=== PATIENT | male | born 1940 | race Caucasian/White ===

== ENCOUNTER 2016-11-05 09:05 | Emergency (ER) | payer OTHER ==
[~2016-11-05] VITALS: Ht 188 cm; Wt 110.0 kg
[~2016-11-05 09:05] MED LIST: ASPI81TA28 PO; ATEN-173 PO; ATOR-24 PO; FURO-85 PO; GABA-112 PO; HYDR12.55 PO; OMEG10007 PO
[2016-11-05 09:15] VITALS: O2SAT 96; Ht 188 cm; Wt 110.0 kg
[2016-11-05] MEDS ORDERED: GABA-113 PO (09:28)
[2016-11-05] MEDS ORDERED: CETI10TA84 PO (09:28)
[2016-11-05] MEDS ORDERED: MELO15TA10 PO (09:29)
--- NOTE | 2016-11-05 10:03 | EMERGENCY ROOM VISIT NOTE ---
History Report prepared by Shayne: Denice Pérez Under the Supervision of: Dr. Abdoul Moon M.D. First contact with patient: 09:36 Chief Complaint: SYNCOPE (NEAR SYNCOPE) Stated Complaint: SYNCOPE Nursing Triage Summary: Pt presents to room B12B via ALS. pt reports he has been constipated since wednesday, last bm was wednesday and he started to take "pain pills" as ordered by dr edwards for back pain. Pt reports he had three suppositoris today and while on the toliet trying to have a bm "i thought i was going to pass out." pt denies having any loc. pt alert and oriented x 4 upon arrival to ed. pt reports he has been having lower back pain and that is why he was started on unknown pain medication. pt displays trace pitting edema to left lower extremity and +1 pitting edema to right lower extremity. History of Present Illness The patient is a 76 year old male who presents to the Emergency Room with complaints of a sudden near syncopal episode that occurred this morning prior to arrival. He currently rates his discomfort as a 4/10 in severity. The patient states that since Wednesday he has been constipated. He states that he is currently on Tramadol for his chronic back pain. The patient denies typically going this long without moving his bowels. The patient reports right hand weakness for the past month. The patient's reports that the patient has a history of lung cancer five years ago, noting that he had one chemotherapy treatment. Source of History: patient Onset: prior to arrival Position: other (global) Symptom Intensity: 4/10 Quality: other (near syncopal episode) Timing: other (sudden) Associated Symptoms: + back pain, + weakness (right arm) Note: Associated symptoms: constipation Review of Systems See HPI for pertinent positives & negatives. A total of 10 systems reviewed and were otherwise negative. Past Medical & Surgical Medical Problems: (1) Esophageal perforation (2) Foreign body in trachea (3) Foreign body sensation in throat (4) Heart disease (5) HTN (hypertension) (6) Lung cancer Surgical Problems: (1) S/P cholecystectomy Family History Stroke Social History Smoking Status: Never Smoker Alcohol Use: occasionally Marital Status: Housing Status: lives with significant other Occupation Status: retired Current/Historical Medications Scheduled Aspirin (Aspirin Ec), 81 MG PO DAILY Atenolol (Tenormin), 25 MG PO QPM Atorvastatin (Lipitor), 40 MG PO DAILY Cetirizine (Zyrtec), 10 MG PO DAILY Docusate Sodium (Colace), 100 MG PO BID Fish Oil (Keeling-3), 1 CAP PO DAILY Gabapentin (Neurontin), 300 MG PO TID Hydrochlorothiazide (Hydrochlorothiazide), 12.5 MG PO Q2D Scheduled PRN Meloxicam (Mobic), 15 MG PO DIRECTED PRN for Pain Allergies Coded Allergies: Clopidogrel (Verified Allergy, Intermediate, ITCHY, FACE SWELLED AND RED, TO ER TO BE TREATED, 11/05/16) Physical Exam Vital Signs Date Time Temp Pulse Resp B/P Pulse Ox O2 Delivery O2 Flow Rate FiO2 11/05/16 13:08 36.9 71 18 119/70 96 11/05/16 11:12 71 18 160/79 96 11/05/16 10:26 68 18 135/63 97 Room Air 11/05/16 09:38 70 18 145/79 97 Room Air 11/05/16 09:16 65 11/05/16 09:15 96 Room Air 11/05/16 09:15 36.9 66 18 171/70 96 Room Air Physical Exam GENERAL: Patient awake, alert, oriented x 3. Patient follows commands. Patient does not appear toxic. Patient is adequately hydrated and well- nourished. SKIN: No erythema, pallor, cyanosis or rash HEENT: Normal head, pupils equal, reactive to light and accommodation. Ears normal. Oral cavity and posterior pharynx appear normal. Neck: Without adenopathy, no neck vein distention. LUNGS: Clear to auscultation. No wheezes, no rales, no rhonchi. HEART: No murmurs. No gallops. No rubs ABDOMEN: No masses, no rebound, no hepatomegaly or splenomegaly. EXTREMITIES: 2+ pitting edema to the right leg No signs of trauma. No calf or thigh tenderness. NEUROLOGIC: Slight weakness in the right arm and right leg, good facial symmetry , no obvious cranial nerve deficits, good sensation. Medical Decision & Procedures ER Provider Diagnostic Interpretation: Radiology results as stated below per my review and radiologist interpretation: CT SCAN OF THE LUMBAR SPINE WITHOUT IV CONTRAST CLINICAL HISTORY: Back pain. Lower extremity weakness. COMPARISON STUDY: Abdominal CT dated 05/02/2012. TECHNIQUE: CT scan of the lumbar spine is performed from the lower thoracic spine to the sacrum. Images reviewed in the axial, sagittal, and coronal planes. IV contrast was not administered for this examination. CT DOSE: 3307.95 mGy.cm FINDINGS: The skeletal structures are osteopenic. There is no evidence of fracture or malalignment involving the lumbar spine. Vertebral body height and alignment are maintained. Anterior osteophytes are seen throughout. The transverse and spinous processes appear intact. There is no evidence of spondylolysis. No lytic or blastic lesions are seen. There is mild degenerative disc space narrowing at L5-S1. The remaining disc spaces are preserved. Tiny posterior disc bulges are seen from L3 to L4 through L5-S1. No large disc herniation is identified. There is no evidence of high-grade central canal stenosis. No significant neural foraminal stenosis is seen throughout the lumbar region. The visualized sacrum and bony pelvis appear intact. Degenerative change in the sacroiliac joints with partial fusion on the right. There is fatty atrophy of the paraspinous musculature. Atherosclerotic calcification is noted in the abdominal aorta. The partially imaged kidneys are atrophic. IMPRESSION: 1. No acute bony abnormality is seen involving the lumbosacral spine. 2. Osteopenia and mild spondylotic change as above. There is no CT evidence of large disc herniation or high-grade central canal stenosis. Dictated: 11/05/2016 11:02 AM Transcribed: 11/05/2016 11:36 AM [facility] Electronically signed by: Vladimir Kim M.D. 11/05/2016 11:40 AM Dictated Date/Time: 11/05/2016 11:[address] WITH AND WITHOUT INTRAVENOUS CONTRAST HISTORY: Right arm and leg weakness. TECHNIQUE: Multiaxial CT images of the head were performed both before and after the intravenous administration of contrast. COMPARISON STUDY: Brain MRI 03/31/2011. FINDINGS: There is no mass, hematoma, midline shift, acute infarct. No abnormal enhancement within the brain. The ventricles and sulci are within normal limits. The calvarium and skull base are intact. Paranasal sinuses and mastoid air cells are clear. IMPRESSION: No acute intracranial abnormality. Electronically signed by: Jj Ruelas M.D. 11/05/2016 11:03 AM Dictated Date/Time: 11/05/2016 10:59 AM CHEST ONE VIEW PORTABLE HISTORY: near syncope COMPARISON: Chest 10/07/2014. FINDINGS: There are low lung volumes. Mild diffuse interstitial thickening, unchanged. The heart is stable in size. Surgical clips overlying the left axilla. No pleural effusions. No pneumothorax. Hazy appearance the left lung base has slightly progressed. IMPRESSION: 1. Slight progression of the hazy appearance to the left lung base. This may represent a developing pneumonia or chronic change. 2. Low lung volumes with mild chronic interstitial thickening is again noted. Electronically signed by: jJ Ruelas M.D. 11/05/2016 10:04 AM Dictated Date/Time: 11/05/2016 10:02 AM Laboratory Results 11/05/16 09:36 Red Blood Count 4.34, Mean Corpuscular Volume 100.0, Mean Corpuscular Hemoglobin 34.8, Mean Corpuscular Hemoglobin Concent 34.8, Mean Platelet Volume 9.4, Neutrophils (%) (Auto) 77.2, Lymphocytes (%) (Auto) 14.9, Monocytes (%) ( Auto) 6.7, Eosinophils (%) (Auto) 0.6, Basophils (%) (Auto) 0.2, Neutrophils # ( Auto) 6.60, Lymphocytes # (Auto) 1.27, Monocytes # (Auto) 0.57, Eosinophils # ( Auto) 0.05, Basophils # (Auto) 0.02 11/05/16 09:36 Test 11/05/16 09:36 11/05/16 10:01 11/05/16 10:05 11/05/16 12:10 White Blood Count 8.54 K/uL (4.8-10.8) Red Blood Count 4.34 M/uL (4.7-6.1) Hemoglobin 15.1 g/dL (14.0-18.0) Hematocrit 43.4 % (42-52) Mean Corpuscular Volume 100.0 fL (80-100) Mean Corpuscular Hemoglobin 34.8 pg (25-34) Mean Corpuscular Hemoglobin Concent 34.8 g/dl (32-36) Platelet Count 208 K/uL (130-400) Mean Platelet Volume 9.4 fL (7.4-10.4) Neutrophils (%) (Auto) 77.2 % Lymphocytes (%) (Auto) 14.9 % Monocytes (%) (Auto) 6.7 % Eosinophils (%) (Auto) 0.6 % Basophils (%) (Auto) 0.2 % Neutrophils # (Auto) 6.60 K/uL (1.4-6.5) Lymphocytes # (Auto) 1.27 K/uL (1.2-3.4) Monocytes # (Auto) 0.57 K/uL (0.11-0.59) Eosinophils # (Auto) 0.05 K/uL (0-0.5) Basophils # (Auto) 0.02 K/uL (0-0.2) RDW Standard Deviation 52.3 fL (36.4-46.3) RDW Coefficient of Variation 14.4 % (11.5-14.5) Immature Granulocyte % (Auto) 0.4 % Immature Granulocyte # (Auto) 0.03 K/uL (0.00-0.02) Anion Gap 7.0 mmol/L (3-11) Est Creatinine Clear Calc Drug Dose 55.3 ml/min Estimated GFR () 51.7 Estimated GFR (Non- 44.6 BUN/Creatinine Ratio 16.3 (10-20) Calcium Level 9.0 mg/dl (8.5-10.1) Total Bilirubin 1.0 mg/dl (0.2-1) Aspartate Amino Transf (AST/SGOT) 29 U/L (15-37) Alanine Aminotransferase (ALT/SGPT) 22 U/L (12-78) Alkaline Phosphatase 69 U/L (45-117) Total Protein 7.2 gm/dl (6.4-8.2) Albumin 3.4 gm/dl (3.4-5.0) Globulin 3.8 gm/dl (2.5-4.0) Albumin/Globulin Ratio 0.9 (0.9-2) Prothrombin Time 11.0 SECONDS (9.0-12.0) Prothromb Time International Ratio 1.0 (0.9-1.1) Activated Partial Thromboplast Time 27.3 SECONDS (21.0-31.0) Partial Thromboplastin Ratio 1.1 Troponin I < 0.015 ng/ml (0-0.045) Urine Color YELLOW Urine Appearance CLEAR (CLEAR) Urine pH 6.5 (4.5-7.5) Urine Specific Purlear 1.029 (1.000-1.030) Urine Protein NEG (NEG) Urine Glucose (UA) NEG (NEG) Urine Ketones NEG (NEG) Urine Occult Blood NEG (NEG) Urine Nitrite NEG (NEG) Urine Bilirubin NEG (NEG) Urine Urobilinogen NEG (NEG) Urine Leukocyte Esterase NEG (NEG) Laboratory results as stated above per my review. ECG Indication: syncope Rate (beats per minute): 62 Rhythm: sinus rhythm Findings: 1st degree AV block, T-wave inversion (leads V1-V4), left axis deviation ED Course 09: Past medical records reviewed. The patient was evaluated in room B12B. A complete history and physical examination was performed. 1216: I reevaluated the patient and he is feeling much better. I discussed all the exam findings with him and I discussed the treatment plan. He verbalized complete understanding and agreement. He is ready to go home. Medical Decision Nurses notes reviewed. Medical history sheet reviewed. Differential diagnosis includes but is not limited to: constipation, bowel obstruction, CVA//TIA, ruptured nucleus pulposus, musculoskeletal pain, discitis. The patient is here with multiple complaints but primarily complaining of abdominal pain and constipation. He also complains of weakness in his right arm and leg which has been going on on for about a month. He also has moderate to severe back pain. Multiple labs, EKG and imaging were obtained. Please see above. The patient also had a large bowel movement while here. The patient felt significantly better after that. CT of his head does not reveal an acute or subacute stroke. His symptoms do suggest a prior small stroke resulting in some weakness to his right arm and leg. CT of his lower back does not reveal any acute findings. The patient feels significantly better and I believe that he can safely return home. He will need to follow closely with his family physician. In the meantime, the patient will be placed on Colace to prevent constipation. Impression Primary Impression: Constipation Additional Impressions: Stroke-like symptoms Back pain Scribe Attestation The scribe's documentation has been prepared under my direction and personally reviewed by me in its entirety. I confirm that the note above accurately reflects all work, treatment, procedures, and medical decision making performed by me. Departure Information Dispostion Home / Self-Care Prescriptions Docusate Sodium (COLACE) 100 Mg Cap 100 MG PO BID, #60 CAP Prov: Abdoul Moon M.D. 11/05/16 Referrals Roberto Edwards M.D. (PCP) Forms HOME CARE DOCUMENTATION FORM, IMPORTANT VISIT INFORMATION Patient Instructions My [facility] Additional Instructions Colace twice a day. Increase Lasix to daily until swelling in your ankles decrease. Follow-up with your family physician within the next 10 days. Problem Qualifiers
[2016-11-05 10:04] LABS: BASO % 0.2 %; BASO ABS # 0.02 K/uL (0-0.2); COMPLETE YES; EOS % 0.6 %; HEMATOCRIT 43.4 % (42-52); IG% 0.4 %; LYMPH % 14.9 %; LYMPH ABS # 1.27 K/uL (1.2-3.4); MEAN CORPUSCULAR HEMOGLOBIN 34.8 pg (25-34); MEAN CORPUSCULAR HGB CONC 34.8 g/dl (32-36); MEAN PLATELET VOLUME 9.4 fL (7.4-10.4); MONO % 6.7 %; NEUT % 77.2 %; PLATELET COUNT 208 K/uL (130-400); RED BLOOD COUNT 4.34 M/uL (4.7-6.1); WHITE BLOOD COUNT 8.54 K/uL (4.8-10.8)
[2016-11-05 10:12] LABS: BUN/CREATININE RATIO 16.3 (10-20); CREATININE 1.5 mg/dl (0.60-1.40); POTASSIUM 3.9 mmol/L (3.5-5.1)
[2016-11-05 10:15] LABS: ALB/GLOB RATIO 0.9 (0.9-2)
[2016-11-05 10:28] LABS: PARTIAL THROMBOPLASTIN RATIO 1.1
--- NOTE | 2016-11-05 11:04 | DIAGNOSTIC IMAGING REPORT ---
HEAD CT WITH AND WITHOUT INTRAVENOUS CONTRAST HISTORY: Right arm and leg weakness. TECHNIQUE: Multiaxial CT images of the head were performed both before and after the intravenous administration of contrast. COMPARISON STUDY: Brain MRI 03/31/2011. FINDINGS: There is no mass, hematoma, midline shift, acute infarct. No abnormal enhancement within the brain. The ventricles and sulci are within normal limits. The calvarium and skull base are intact. Paranasal sinuses and mastoid air cells are clear. IMPRESSION: No acute intracranial abnormality. Electronically signed by: Jj Ruelas M.D. 11/05/2016 11:03 AM Dictated Date/Time: 11/05/2016 10:59 AM
--- NOTE | 2016-11-05 11:36 | DIAGNOSTIC IMAGING REPORT ---
CT SCAN OF THE LUMBAR SPINE WITHOUT IV CONTRAST CLINICAL HISTORY: Back pain. Lower extremity weakness. COMPARISON STUDY: Abdominal CT dated 05/02/2012. TECHNIQUE: CT scan of the lumbar spine is performed from the lower thoracic spine to the sacrum. Images reviewed in the axial, sagittal, and coronal planes. IV contrast was not administered for this examination. CT DOSE: 3307.95 mGy.cm FINDINGS: The skeletal structures are osteopenic. There is no evidence of fracture or malalignment involving the lumbar spine. Vertebral body height and alignment are maintained. Anterior osteophytes are seen throughout. The transverse and spinous processes appear intact. There is no evidence of spondylolysis. No lytic or blastic lesions are seen. There is mild degenerative disc space narrowing at L5-S1. The remaining disc spaces are preserved. Tiny posterior disc bulges are seen from L3 to L4 through L5-S1. No large disc herniation is identified. There is no evidence of high-grade central canal stenosis. No significant neural foraminal stenosis is seen throughout the lumbar region. The visualized sacrum and bony pelvis appear intact. Degenerative change in the sacroiliac joints with partial fusion on the right. There is fatty atrophy of the paraspinous musculature. Atherosclerotic calcification is noted in the abdominal aorta. The partially imaged kidneys are atrophic. IMPRESSION: 1. No acute bony abnormality is seen involving the lumbosacral spine. 2. Osteopenia and mild spondylotic change as above. There is no CT evidence of large disc herniation or high-grade central canal stenosis. Dictated: 11/05/2016 11:02 AM Transcribed: 11/05/2016 11:36 AM [facility] Electronically signed by: Vladimir Kim M.D. 11/05/2016 11:40 AM Dictated Date/Time: 11/05/2016 11:02 AM
[2016-11-05] MEDS ORDERED: DOCU-94 PO (12:33)
[2016-11-05 13:00] LABS: URINE APPEARANCE CLEAR (CLEAR); URINE BILIRUBIN NEG (NEG); URINE COLOR YELLOW; URINE NITRITE NEG (NEG); URINE PH 6.5 (4.5-7.5); URINE SPECIFIC GRAVITY 1.029 (1.000-1.030); UROBILINOGEN NEG (NEG); ZZUR CULT IF INDIC CLEAN CATCH NO
[2016-11-05 13:08] VITALS: BP 119/70; PULSE 71; TEMP 36.9; O2SAT 96
[2016-11-05 13:10] LABS: MANUAL MICROSCOPIC REQUIRED? NO; REVIEW REQ? NO
== END 2016-11-05 13:10 | disposition home or self-care (01) ==
LOC: EDBD 09:05 → C.EDB 09:07
DX: K59.00 Constipation, unspecified (principal); I69.351 Hemiplegia and hemiparesis following cerebral infarction affecting right dominant side; M54.9 Dorsalgia, unspecified; I10 Essential (primary) hypertension; G89.29 Other chronic pain; Z82.3 Family history of stroke; Z79.899 Other long term (current) drug therapy; Z79.82 Long term (current) use of aspirin; Z85.118 Personal history of other malignant neoplasm of bronchus and lung; Z90.49 Acquired absence of other specified parts of digestive tract

== ENCOUNTER → 2016-12-31 | Outpatient (CLI) | payer OTHER ==
[~2016-12-31] MED LIST changes: +CETI10TA84 PO; +DOCU-94 PO; -FURO-85 PO; -GABA-112 PO; +GABA-113 PO; +GADAVIST IV PRN; +MELO15TA10 PO
--- NOTE | 2016-12-31 11:58 | DIAGNOSTIC IMAGING REPORT ---
MRI ABDOMEN COMBO CLINICAL HISTORY: PANCREATIC CYSTS LUNG CARCINOMA TECHNIQUE: Imaging was performed prior to and following IV contrast injection (11 cc intravenous Gadavist). COMPARISON STUDY: PET/CT scan dated 11/29/2013, chest CT dated 05/29/2016 FINDINGS: There are bibasilar fibrotic changes within the lungs. No focal hepatic masses are visualized. There is bilateral renal scarring and mild perinephric fluid. There is no hydronephrosis. No adrenal masses are visualized. No pancreatic masses are visualized. There is a 20 mm cyst which appears to arise from the mid pancreatic body. There is a 4 mm cyst at the pancreatic body tail junction. There is a 2 mm cystic lesion with the pancreatic neck. There is no pancreatic ductal dilatation. There is no intra or extrahepatic biliary ductal dilatation. There is no evidence of abdominal aortic dilatation. IMPRESSION: 1. Pulmonary fibrosis 2. Multiple cystic pancreatic lesions, the largest of which measures 20 mm, arising from the mid pancreatic body. There are no solid components. There is no abnormal septation. There is no pathologic enhancement. There is no associated ductal dilatation. This lesion measured 20 mm on the May 29, [address] Electronically signed by: José Quinones M.D. 12/31/2016 11:57 AM Dictated Date/Time: 12/31/2016 11:45 AM
== END | disposition home or self-care (01) ==
LOC: C.MRI 09:04
PROVIDERS: ATTEND Internal Medicine
DX: K86.2 Cyst of pancreas (principal)

== ENCOUNTER → 2017-02-02 | Outpatient (CLI) | payer OTHER ==
[~2017-02-02] MED LIST changes: -GADAVIST IV PRN
--- NOTE | 2017-02-02 13:50 | DIAGNOSTIC IMAGING REPORT ---
VIDEO SWALLOW STUDY CLINICAL HISTORY: Dysphagia. COMPARISON STUDY: Upper GI series dated 06/25/2011. Fluoroscopy time: 3.2 minutes. FINDINGS: Fluoroscopic guidance was provided to the Department of Speech Pathology in performing a video swallow study. The patient consumed barium-impregnated pudding, cracker with paste, nectar thick liquid, and thin barium and the swallowing mechanism was observed in real-time. There is pharyngeal penetration and silent aspiration seen with thin barium. Pharyngeal penetration without aspiration was seen on the nectar thick liquid textures. No penetration or aspiration was seen with the pudding and nectar thick liquid textures. There was vallecular retention seen with the nectar thick liquid, pudding, and cracker with paste textures. Esophageal dysmotility is observed. IMPRESSION: 1. Silent aspiration was seen with thin barium. 2. No aspiration was seen with the remaining textures. 3. Vallecular retention and esophageal dysmotility are identified. 4. See dedicated speech pathology report for detailed findings and recommendations. Dictated: 02/02/2017 1:47 PM Transcribed: 02/02/2017 1:50 PM [place] Electronically signed by: Vladimir Kim M.D. 02/02/2017 1:58 PM Dictated Date/Time: 02/02/2017 1:47 PM
--- NOTE | 2017-02-02 15:03 | SWALLOWING EVALUATION ---
REFERRING SPEECH PATHOLOGIST: n/a HISTORY: This 76 year-old man was referred for a VFSS at [facility] in order to rule address c/o increased dysphagia over the last three months. The patient has a PMH significant for lung cancer, hypertension, heart disease, esophageal perforation, esophageal dysmotility (Barium Swallow 2011), globus sensation, and "myeloradiculopathy". The patient and his report acute onset of (R) lower extremity and (R) upper extremity weakness along with dysarthria and dysphagia over the last 3-4 months. He reports a weight loss of 15-20# over the same three-four month period. Despite visiting "at least 10 doctors" he and his report having no specific diagnosis to account for the neurological changes. The patient's did say that a test for Lyme's disease came back negative, but given the high rate of false negatives with that test in combination with the patient's symptoms and his high probability of exposure to tics she remains concerned. Currently the patient's diet level is regular. PROCEDURE: The patient was seen in the Radiology Department of [facility] for the VFSS. Cursory examination of the oral cavity revealed adequate dentition. Movement of the articulators was impaired as evidenced by his moderate dysarthria. The patient states the dysarthria is preventing him from using the telephone. The patient stood for the procedure using bilateral canes for stability and was viewed in both the Anterior-Posterior (A-P) and Lateral planes. Volitional phonation exercises completed in the A-P plane revealed bilateral vocal fold movement and vocal intensity within functional limits. In the lateral plane, the patient was given the following boluses: 1 tsp. thin liquid barium x 2, single swallow thin liquid barium self-presented from a cup, sequential swallows of thin liquid barium self-presented from a cup, 1 tsp. nectar-thick liquid barium, single swallow nectar-thick liquid barium self-presented from a cup, 1 tsp. barium pudding, and 1 club cracker with barium pudding. The patient was then repositioned into the A-P plane and given 1 tsp. barium pudding. RESULTS: Oral Stage: Interlabial bolus escape without progression beyond the jase border. Cohesive bolus between tongue and palate during oral bolus hold of thin liquids. Slow mastication with complete bolus re-collection. Delayed initiation of bolus transfer, but once initiated the bolus moved posteriorly. Residue collections on tongue and teeth after initial swallow of solid bolus. These cleared with subsequent dry swallows. Latent initiation of pharyngeal swallow occurring when the bolus head was in the pyriform sinuses. Mild-moderate delays and weaknesses in the oral stage of the swallow. Pharyngeal Stage: There was no bolus between the soft palate and pharyngeal wall. Partial superior movement of the thyroid cartilage with partial approximation of the arytenoids to the epiglottic petiole. Minimal anterior hyoid excursion. Incomplete epiglottic inversion with the epiglottis not extending past the horizontal position. Incomplete laryngeal vestibular closure. Diminished pharyngeal stripping wave. Unilateral pharyngeal bulging seen in the AP plane within the (L) hypopharynx. Partial distention and duration of PES opening. Majority of contrast left within the valleculae after swallowing. The patient required verbal cues to complete effortful swallows and was able to complete them to minimize the residual. There was SILENT ASPRIATION of thin liquid boluses presented via tsp. AND presented via sequential swallow from the cup. Other bolus consistencies penetrated the laryngeal vestibule (P-A Scale = 2), but were not aspirated. Moderate to severe pharyngeal weakness and incomplete ROM were the primary contributors to the aspiration and risk of aspiration. It should also be noted that the patient had c/o "burning and tingling" in the velum and "top of throat" intermittently throughout the study. Esophageal Stage: Mild esophageal dysmotility noted as a pudding bolus transited the esophagus. This was also previously documented during a Barium Swallow Study completed in 2012. SUMMARY/RECOMMENDATIONS: This patient presents with moderate oral-pharyngeal dysphagia. In addition, the patient presents with s/s esophageal dysfunction AND moderate dysarthria. The following is recommended: 1. Regular diet as tolerated. 2. Aspiration Precautions: SINGLE SWALLOWS of liquids using effortful swallow; swallow twice using effortful swallow after swallowing solids; complete oral hygiene at least 3x/day to minimize oral bacteria that may be aspirated in saliva/secretions; keep head of bed elevated AT LEAST 30-degrees at all times; remain upright after eating for 15-20 minutes after meals 3. Consider LP to r/o Lyme's disease and/or other neurological processes. Consider continuing all testing for a degenerative neurological process. 4. This patient would benefit from OUTPATIENT SPEECH THERAPY SERVICES to address dysarthria and dysphagia with SILENT ASPIRATION. A summary of the results and recommendations was discussed with the patient and his immediately following the study. The patient stated he is anticipating having an MRI of his neck to address his "issues". I was very clear with the patient and his that the progressive dysarthria and, now, the dysphagia with lack of sensory response to aspiration is very concerning for a neurological process and is not likely to be caused by nerve impingement. I encouraged them to have more diagnostic testing re: Lyme's disease and other neurological disease processes. Thank you for referral of this patient. Please contact me at if any additional information is needed.
== END | disposition home or self-care (01) ==
LOC: C.RAD 12:31
PROVIDERS: ATTEND Psychiatry & Neurology Neurology
DX: R13.10 Dysphagia, unspecified (principal); G54.9 Nerve root and plexus disorder, unspecified; T17.920A Food in respiratory tract, part unspecified causing asphyxiation, initial encounter; X58.XXXA Exposure to other specified factors, initial encounter

== ENCOUNTER 2017-06-09 11:02 | Inpatient (IN) | payer OTHER ==
[~2017-06-09] VITALS: Ht 186.7 cm; Wt 104.9 kg
[~2017-06-09 11:02] MED LIST changes: -DOCU-94 PO
[2017-06-09] MEDS ORDERED: DOCU-94 PO (11:48)
[2017-06-09] MEDS ORDERED: ULT50 PO (11:48)
[2017-06-09] MEDS ORDERED: LSX20 PO (11:48)
[2017-06-09] MEDS ORDERED: AZEL0.1S2 NAE (11:48)
[2017-06-09] MEDS ORDERED: RILU1TAB PO (11:48)
[2017-06-09 12:13] LABS: BASO % 0.5 %; BASO ABS # 0.04 K/uL (0-0.2); EOS % 3.8 %; EOS ABS # 0.28 K/uL (0-0.5); HEMATOCRIT 45.5 % (42-52); IG# 0.02 K/uL (0.00-0.02); LYMPH ABS # 1.76 K/uL (1.2-3.4); MEAN CELL VOLUME 101.3 fL (80-100); MEAN CORPUSCULAR HEMOGLOBIN 35.6 pg (25-34); MEAN CORPUSCULAR HGB CONC 35.2 g/dl (32-36); MONO ABS # 0.59 K/uL (0.11-0.59); NEUT % 63.4 %; NEUT ABS # 4.65 K/uL (1.4-6.5); PLATELET COUNT 193 K/uL (130-400); RED CELL DISTRIBUTION WIDTH CV 14.7 % (11.5-14.5); RED CELL DISTRIBUTION WIDTH SD 53.2 fL (36.4-46.3); WHITE BLOOD COUNT 7.34 K/uL (4.8-10.8)
--- NOTE | 2017-06-09 12:20 | DIAGNOSTIC IMAGING REPORT ---
CHEST ONE VIEW PORTABLE HISTORY: increased mucous production and ALS COMPARISON: Chest 11/05/2016. FINDINGS: Hazy appearance the left mid to lower lung zone is again noted and is consistent with postoperative changes and prominent mediastinal fat. However, there is progressive consolidation seen within the left lower lung zone concerning for superimposed pneumonia. No pneumothorax. No pleural effusions. Mild chronic interstitial thickening is again noted. There are low lung volumes. The heart is stable in size. IMPRESSION: Progressive consolidation seen within the left lower lung zone concerning for a developing pneumonia. Electronically signed by: Jj Ruelas M.D. 06/09/2017 12:19 PM Dictated Date/Time: 06/09/2017 12:16 PM
[2017-06-09 12:32] LABS: ALBUMIN 3.5 gm/dl (3.4-5.0); ALT/SGPT 26 U/L (12-78); AST/SGOT 35 U/L (15-37); BLOOD UREA NITROGEN 21 mg/dl (7-18); CALCIUM 8.8 mg/dl (8.5-10.1); CARBON DIOXIDE 30 mmol/L (21-32); CREATININE 1.39 mg/dl (0.60-1.40); GLUCOSE 81 mg/dl (70-99); POTASSIUM 4.2 mmol/L (3.5-5.1); SODIUM 136 mmol/L (136-145)
--- NOTE | 2017-06-09 12:33 | EMERGENCY ROOM VISIT NOTE ---
History Report prepared by Shayne: Jo Ann Peterson Under the Supervision of: Dr. Kvng Fairchild M.D. First contact with patient: 12:00 Chief Complaint: SHORTNESS OF BREATH Stated Complaint: SOB Nursing Triage Summary: Pt with hx of ALS. speaks for patient. Reports patient has been having problems with increased mucus over the last 6 months, progressively getting worse. Pt states "The mucus makes me feel like it's strangling me, I can' breath." Pt with limited mobility of the R side. O2 saturation 96% on RA. History of Present Illness The patient is a 76 year old male with a past medical history of ALS, esophageal perforation, heart disease, hypertension, and lung cancer who presents to the ED with a cc of worsening shortness of breath beginning 6 months ago. Positive cough, phlegm, choking, and irregular bowel movements. The patient states he has difficulty swallowing anything, noting he has a normal diet. The patient notes he sometimes takes stool softeners and suppositories. He notes that he is seen by Dr. Gold, neurologist at [facility]. Source of History: patient Onset: 6 months ago Position: other (global ) Quality: other (shortness of breath) Timing: worsening Associated Symptoms: + cough Review of Systems See HPI for pertinent positives and negatives. A total of ten systems were reviewed and were otherwise negative. Past Medical & Surgical Medical Problems: (1) ALS (amyotrophic lateral sclerosis) (2) CKD (chronic kidney disease), stage III (3) Esophageal perforation (4) Foreign body in trachea (5) Foreign body sensation in throat (6) Heart disease (7) HTN (hypertension) (8) Lung cancer (9) Lung cancer (10) Pneumonia Surgical Problems: (1) History of bronchoscopy (2) Hx laparoscopic cholecystectomy (3) Hx of total hip arthroplasty (4) S/P cholecystectomy Family History Stroke Social History Smoking Status: Former Smoker Alcohol Use: occasionally Marital Status: Housing Status: lives with significant other Occupation Status: retired Current/Historical Medications Scheduled Aspirin (Aspirin Ec), 81 MG PO DAILY Atenolol (Tenormin), 25 MG PO DAILY Azelastine HCl (Azelastine Hydrochloride), 2 SPRAYS MAHIN BID Furosemide (Furosemide), 1 TAB PO DAILY Gabapentin (Neurontin), 300 MG PO BID Glycopyrrolate (Glycopyrrolate), 1 TAB PO TID Riluzole (Riluzole), 1 TAB PO BID Scheduled PRN Docusate Sodium (Colace), 1 CAP PO DAILY PRN for Constipation Meloxicam (Mobic), 15 MG PO DIRECTED PRN for Pain Tramadol HCl (Tramadol HCl), 1 TAB PO Q6 PRN for Pain Allergies Coded Allergies: Clopidogrel (Verified Allergy, Intermediate, ITCHY, FACE SWELLED AND RED, TO ER TO BE TREATED, 06/09/17) Physical Exam Vital Signs Date Time Temp Pulse Resp B/P (MAP) Pulse Ox O2 Delivery O2 Flow Rate FiO2 06/09/17 13:11 61 20 127/56 97 06/09/17 12:07 97 Room Air 06/09/17 12:06 97 Room Air 06/09/17 12:05 64 06/09/17 12:03 64 97 06/09/17 11:20 96 Room Air 06/09/17 11:20 96 Room Air 06/09/17 11:03 36.3 79 20 167/85 97 Room Air Physical Exam GENERAL: Awake, alert, well-appearing, NAD HENT: Posterior oropharynx clear, no uvular deviation, no stridor. Normocephalic , atraumatic. EYES: Normal conjunctiva. Sclera non-icteric. NECK: Supple. No nuchal rigidity. FROM. RESPIRATORY: CTAB, no rhonchi, wheezing, crackles CARDIAC: RRR, no MRG ABDOMEN: Soft, NTND, BS+ MSK: No chest wall TTP, no LE edema NEURO: Dysarthria, some right sided weakness compared to left which is old. GCS 15, moves all 4s on command SKIN: No rash or jaundice noted. Medical Decision & Procedures ER Provider Diagnostic Interpretation: Radiology results as stated below per my review and radiologist interpretation: CHEST ONE VIEW PORTABLE HISTORY: increased mucous production and ALS COMPARISON: Chest 11/05/2016. FINDINGS: Hazy appearance the left mid to lower lung zone is again noted and is consistent with postoperative changes and prominent mediastinal fat. However, there is progressive consolidation seen within the left lower lung zone concerning for superimposed pneumonia. No pneumothorax. No pleural effusions. Mild chronic interstitial thickening is again noted. There are low lung volumes. The heart is stable in size. IMPRESSION: Progressive consolidation seen within the left lower lung zone concerning for a developing pneumonia. Electronically signed by: Jj Ruelas M.D. 06/09/2017 12:19 PM Dictated Date/Time: 06/09/2017 12:16 PM Laboratory Results 06/09/17 12:00 Test 06/09/17 12:00 Immature Granulocyte % (Auto) 0.3 % White Blood Count 7.34 K/uL (4.8-10.8) Red Blood Count 4.49 M/uL (4.7-6.1) Hemoglobin 16.0 g/dL (14.0-18.0) Hematocrit 45.5 % (42-52) Mean Corpuscular Volume 101.3 fL (80-100) Mean Corpuscular Hemoglobin 35.6 pg (25-34) Mean Corpuscular Hemoglobin Concent 35.2 g/dl (32-36) Platelet Count 193 K/uL (130-400) Mean Platelet Volume 10.0 fL (7.4-10.4) Neutrophils (%) (Auto) 63.4 % Lymphocytes (%) (Auto) 24.0 % Monocytes (%) (Auto) 8.0 % Eosinophils (%) (Auto) 3.8 % Basophils (%) (Auto) 0.5 % Neutrophils # (Auto) 4.65 K/uL (1.4-6.5) Lymphocytes # (Auto) 1.76 K/uL (1.2-3.4) Monocytes # (Auto) 0.59 K/uL (0.11-0.59) Eosinophils # (Auto) 0.28 K/uL (0-0.5) Basophils # (Auto) 0.04 K/uL (0-0.2) Immature Granulocyte # (Auto) 0.02 K/uL (0.00-0.02) Anion Gap 4.0 mmol/L (3-11) Estimated GFR () 56.7 Estimated GFR (Non- 48.9 BUN/Creatinine Ratio 15.3 (10-20) Calcium Level 8.8 mg/dl (8.5-10.1) Phosphorus Level 3.0 mg/dl (2.5-4.9) Magnesium Level 2.3 mg/dl (1.8-2.4) Total Bilirubin 1.1 mg/dl (0.2-1) Aspartate Amino Transf (AST/SGOT) 35 U/L (15-37) Alanine Aminotransferase (ALT/SGPT) 26 U/L (12-78) Alkaline Phosphatase 89 U/L (45-117) Troponin I < 0.015 ng/ml (0-0.045) Pro-B-Type Natriuretic Peptide 1425 pg/ml (0-1800) Total Protein 7.4 gm/dl (6.4-8.2) Albumin 3.5 gm/dl (3.4-5.0) Globulin 3.9 gm/dl (2.5-4.0) Albumin/Globulin Ratio 0.9 (0.9-2) Laboratory results reviewed by me Medications Administered Medications (Trade) Dose Ordered Sig/Annel Route Start Time Stop Time Status Last Admin Dose Admin Ceftriaxone Sodium (Rocephin Inj) 1 gm NOW STAT IV 06/09/17 12:36 06/09/17 12:37 DC 06/09/17 13:11 1 GM Azithromycin 500 mg/Dextrose 255 ml @ 125 mls/hr ONE ONCE IV 06/09/17 12:45 06/09/17 14:47 DC 06/09/17 13:57 125 MLS/HR ECG Indication: SOB/dyspnea Rate (beats per minute): 68 Rhythm: sinus rhythm Findings: 1st degree AV block, PVC (2 PVC's noted), left axis deviation, other (prolonged FL ) ED Course 1217: The patient was evaluated in room C12B. A complete history and physical exam was performed. 1255: Discussed the patient's case with Yakov Venegas. The patient will be evaluated for further treatment and disposition. Medical Decision The patient is a 76 year old male with a past medical history of ALS, esophageal perforation, heart disease, hypertension, and lung cancer who presents to the ED with a cc of worsening shortness of breath beginning 6 months ago. Differential diagnosis: Etiologies such as infections, reactive airway disease, pneumonia, pneumothorax , COPD, CHF, cardiac ischemia, pulmonary embolism, musculoskeletal, gastrointestinal, as well as others were entertained. Patient was seen and evaluated the bedside. Patient unfortunately has aggressively worsening ALS. [facility]. Patient has been complaining of some difficulty with swallowing as well as expectoration when he has what he believes to be coughing fits with productive sputum but he is unable to expectorate very well. I'm concerned that he is an aspiration risk in addition to likely has some dysphasia. Patient did have blood work completed along with an EKG, troponin, chest x-ray. Patient's EKG did show first-degree AV block but no other ischemic changes. Patient had a negative troponin. Flu negative. Patient's chest x-ray did show concern for left lower lobe pneumonia. Rocephin/azithro ordered/given. Patient is otherwise afebrile with stable vital signs and a normal white blood cell count; however, given the patient's progressively worsening ALS and my concern for his inability to swallow or expectorate I believe he may be higher risk. I also believe he would benefit from further evaluation treatment of this in addition to his pneumonia. I did speak with the medicine team who agreed to further evaluate and treat the patient. Medication Reconcilliation Current Medication List: was personally reviewed by me Blood Pressure Screening Patient's blood pressure: Elevated blood pressure Blood pressure disposition: Referred to PCP (to hospitalist) Consults Time Called: [id number] Consulting Physician: Yakov Venegas Returned Call: [phone] Discussed the patient's case. The patient will be evaluated for further treatment and disposition. Impression Primary Impression: Pneumonia Additional Impressions: Dysphagia ALS (amyotrophic lateral sclerosis) Scribe Attestation The scribe's documentation has been prepared under my direction and personally reviewed by me in its entirety. I confirm that the note above accurately reflects all work, treatment, procedures, and medical decision making performed by me. Departure Information Dispostion Being Evaluated By Hospitalist Referrals Armaan Giraldo M.D. (PCP) Forms HOME CARE DOCUMENTATION FORM, IMPORTANT VISIT INFORMATION Patient Instructions My [facility] Problem Qualifiers Primary Impression: Pneumonia Pneumonia type: due to unspecified organism Laterality: left Lung location : lower lobe of lung Qualified Codes: J18.1 - Lobar pneumonia, unspecified organism Additional Impressions: Dysphagia Dysphagia type: unspecified Qualified Codes: R13.10 - Dysphagia, unspecified
[2017-06-09] MEDS ORDERED: CEFTRIAXONE SOD INJ 1 GM ADDVIAL IV STA (12:36)
[2017-06-09 12:38] LABS: ALKALINE PHOSPHATASE 89 U/L (45-117); TOTAL PROTEIN 7.4 gm/dl (6.4-8.2)
[2017-06-09] MEDS ORDERED: AZITHROMYCIN IV 500 MG in DEXTROSE 5% 250ML 250 ML IV ONE (12:45)
[2017-06-09] MEDS ORDERED: AMPICILLIN/SULBACTAM SOD INJ 3,000 MG in SODIUM CHLORIDE 0.9% 100ML 100 ML IV SCH (14:30)
[2017-06-09] MEDS ORDERED: GLYC1TAB19 PO (14:36)
[2017-06-09] MEDS ORDERED: DOCUSATE SODIUM 100 MG CAP PO PRN (14:45)
--- NOTE | 2017-06-09 14:50 | NUR ---
A: Pt arrived to room 284-2 at this time. VSS. at bedside. Pt alert and oriented x4. Both oriented to room and call guardado system and encouraged to ring for assistance. contract associate manager applied. Pt denies and pain or SOB at this time. Will continue to monitor and await orders. Call guardado within reach.
[2017-06-09 15:25] VITALS: BP 147/65; PULSE 68; TEMP 36.6; O2SAT 94
[2017-06-09] MEDS ORDERED: PATIENT'S HEIGHT AND/OR WEIGHT NEEDED SCH (15:30)
[2017-06-09 15:58] LABS: HEMATOCRIT 43.1 % (42-52); HEMOGLOBIN 15.1 g/dL (14.0-18.0); MEAN PLATELET VOLUME 9.9 fL (7.4-10.4); PLATELET COUNT 159 K/uL (130-400); RED CELL DISTRIBUTION WIDTH CV 14.3 % (11.5-14.5); RED CELL DISTRIBUTION WIDTH SD 52.1 fL (36.4-46.3); WHITE BLOOD COUNT 6.39 K/uL (4.8-10.8)
[2017-06-09] MEDS ORDERED: SODIUM CHLORIDE 0.9% 1000ML 1,000 ML IV SCH (16:00)
[2017-06-09] MEDS: AMPICILLIN/SULBACTAM SOD INJ 3,000 MG in SODIUM CHLORIDE 0.9% 100ML 100 ML IV SCH ×2 (16:30→21:33)
--- NOTE | 2017-06-09 17:02 | History and Physical ---
History & Physical Date & Time of Service: Jun 09, 2017 at 15:40 Chief Complaint: Pneumonia Primary Care Physician: Armaan Giraldo M.D. 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 Pt and reports ALS progressing and has been having increased trouble swallowing mucous and choking frequently on mucous. Denies increased mucous production. Sometimes chokes on pills. states pt usually ok with eating but does sometimes cough with that. Reports 2 days ago bad choking and coughing episodes and yesterday also. Yesterday feeling SOB. Does home PT exercises for R sided weakness and has brace for R foot drop. does pt's ADL's. Denies fever/chills, diaphoresis, N/V/D, PERRY, dizziness, syncope, vision changes, neck pain, CP, orthopnea, palpitations, hemoptysis, rhinorrhea, abdominal pain, extremity edema , rashes, urinary symptoms. Pt follows with Dr Youngblood neurology, in past followed with Dr Greenberg for oncology and has appt with pulmonology - Dr Merchant in [place] for PFTs and f/ u. 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 Dr Brantley ENT In ER pt afebrile, O2: 96% on RA. no leukocytosis, negative troponin. CXR: LLL consolidation. Pt given rocephin and zithromax IV in ER. Past Medical/Surgical History Medical Problems: (1) ALS (amyotrophic lateral sclerosis) Status: Chronic (2) CKD (chronic kidney disease), stage III Status: Chronic (3) Esophageal perforation Status: Resolved (4) Foreign body in trachea Status: Resolved (5) Foreign body sensation in throat Status: Resolved (6) Heart disease Permanent Comment: hx CAD stent to RCA 2000 Status: Chronic (7) HTN (hypertension) Status: Chronic (8) Lung cancer Status: Resolved (9) Lung cancer Permanent Comment: 2011 - squamous cell SUNDAY Status: Chronic Surgical Problems: (1) History of bronchoscopy Status: Resolved (2) Hx laparoscopic cholecystectomy Status: Resolved (3) Hx of total hip arthroplasty Status: Resolved (4) S/P cholecystectomy Status: Resolved Family History Hypertension Stroke Social History Smoking Status: Former Smoker (smoked pipe for 26 years, quit 1989) Smokeless Tobacco Use: No Alcohol Use: none Drug Use: none Marital Status: Housing status: lives with significant other Occupational Status: retired Immunizations History of Influenza Vaccine: Yes Influenza Vaccine Date: Mar 29, 2011 History of Tetanus Vaccine?: Yes History of Pneumococcal: No Pneumococcal Date: Apr 29, 2008 History of Hepatitis B Vaccine: Unknown Multi-Drug Resistant Organisms History of MDRO: No Allergies Coded Allergies: Clopidogrel (Verified Allergy, Intermediate, ITCHY, FACE SWELLED AND RED, TO ER TO BE TREATED, 06/09/17) Home Medications Scheduled Aspirin (Aspirin Ec), 81 MG PO DAILY Atenolol (Tenormin), 25 MG PO DAILY Azelastine HCl (Azelastine Hydrochloride), 2 SPRAYS MAHIN BID Furosemide (Furosemide), 1 TAB PO DAILY Gabapentin (Neurontin), 300 MG PO BID Glycopyrrolate (Glycopyrrolate), 1 TAB PO TID Riluzole (Riluzole), 1 TAB PO BID Scheduled PRN Docusate Sodium (Colace), 1 CAP PO DAILY PRN for Constipation Meloxicam (Mobic), 15 MG PO DIRECTED PRN for Pain Tramadol HCl (Tramadol HCl), 1 TAB PO Q6 PRN for Pain Review of Systems Constitutional: No fever, No chills, No sweats, No weight loss, No weakness Eyes: + problem reported, No eye pain, No redness, No discharge ENT: + problem reported (see HPI), No nasal symptoms Respiratory: + problem reported (see HPI) Cardiovascular: No chest pain, No orthopnea, No PND, No edema, No claudication , No palpitations Abdomen: No pain, No nausea, No vomiting, No diarrhea, No GI bleeding Genitourinary - Male: No hematuria, No dysuria, No urinary frequency, No urinary urgency, No urinary hesitancy, No urinary retention Neurologic: + weakness (see HPI) Psychiatric: No depression symptoms, No anxiety Endocrine: No excessive thirst, No excessive urination Hematologic / Lymphatic: No abnormal bleeding/bruising, No clotting problems, No night sweats Integumentary: No rash, No itch Physical Exam Vital Signs Date Time Temp Pulse Resp B/P (MAP) Pulse Ox O2 Delivery O2 Flow Rate FiO2 06/09/17 15:25 36.6 68 20 147/65 (92) 94 Room Air 06/09/17 14:02 76 18 152/74 95 Room Air 06/09/17 13:11 61 20 127/56 97 06/09/17 12:07 97 Room Air 06/09/17 12:06 97 Room Air 06/09/17 12:05 64 06/09/17 12:03 64 97 06/09/17 11:20 96 Room Air 06/09/17 11:20 96 Room Air 06/09/17 11:03 36.3 79 20 167/85 97 Room Air General Appearance: WD/WN, no apparent distress, + pertinent finding (+ dysarthria) Head: normocephalic, atraumatic Eyes: normal inspection, PERRL, EOMI, sclerae normal ENT: hearing grossly normal, pharynx normal Neck: supple, no JVD, trachea midline Respiratory/Chest: chest non-tender, no respiratory distress, no accessory muscle use, + decreased breath sounds, + crackles Cardiovascular: regular rate, rhythm, normal peripheral pulses Abdomen/GI: normal bowel sounds, non tender, soft Extremities/Musculoskelatal: normal capillary refill, non-tender, + pedal edema (mild bilaterally. right foot drop. Right arm and R leg weakness compared to left arm and leg) Neurologic/Psych: alert, normal mood/affect, oriented x 3, + pertinent finding (+dysarthria) Skin: normal color, warm/dry Diagnostics Laboratory Results Results Past 24 Hours Test 06/09/17 12:00 06/09/17 15:25 Range/Units White Blood Count 7.34 4.8-10.8 K/uL Red Blood Count 4.49 4.7-6.1 M/uL Hemoglobin 16.0 14.0-18.0 g/dL Hematocrit 45.5 42-52 % Mean Corpuscular Volume 101.3 80-100 fL Mean Corpuscular Hemoglobin 35.6 25-34 pg Mean Corpuscular Hemoglobin Concent 35.2 32-36 g/dl Platelet Count 193 130-400 K/uL Mean Platelet Volume 10.0 7.4-10.4 fL Neutrophils (%) (Auto) 63.4 % Lymphocytes (%) (Auto) 24.0 % Monocytes (%) (Auto) 8.0 % Eosinophils (%) (Auto) 3.8 % Basophils (%) (Auto) 0.5 % Neutrophils # (Auto) 4.65 1.4-6.5 K/uL Lymphocytes # (Auto) 1.76 1.2-3.4 K/uL Monocytes # (Auto) 0.59 0.11-0.59 K/uL Eosinophils # (Auto) 0.28 0-0.5 K/uL Basophils # (Auto) 0.04 0-0.2 K/uL RDW Standard Deviation 53.2 36.4-46.3 fL RDW Coefficient of Variation 14.7 11.5-14.5 % Immature Granulocyte % (Auto) 0.3 % Immature Granulocyte # (Auto) 0.02 0.00-0.02 K/uL Sodium Level 136 136-145 mmol/L Potassium Level 4.2 3.5-5.1 mmol/L Chloride Level 102 98-107 mmol/L Carbon Dioxide Level 30 21-32 mmol/L Anion Gap 4.0 3-11 mmol/L Blood Urea Nitrogen 21 7-18 mg/dl Creatinine 1.39 0.60-1.40 mg/dl Estimated GFR () 56.7 Estimated GFR (Non- 48.9 BUN/Creatinine Ratio 15.3 10-20 Random Glucose 81 70-99 mg/dl Calcium Level 8.8 8.5-10.1 mg/dl Phosphorus Level 3.0 2.5-4.9 mg/dl Magnesium Level 2.3 1.8-2.4 mg/dl Total Bilirubin 1.1 0.2-1 mg/dl Aspartate Amino Transf (AST/SGOT) 35 15-37 U/L Alanine Aminotransferase (ALT/SGPT) 26 12-78 U/L Alkaline Phosphatase 89 45-117 U/L Troponin I < 0.015 0-0.045 ng/ml Pro-B-Type Natriuretic Peptide 1425 0-1800 pg/ml Total Protein 7.4 6.4-8.2 gm/dl Albumin 3.5 3.4-5.0 gm/dl Globulin 3.9 2.5-4.0 gm/dl Albumin/Globulin Ratio 0.9 0.9-2 Microbiology Results 06/09/17 Blood Culture, Ordered Pending 06/09/17 Blood Culture, Ordered Pending Diagnostic Radiology CXR: IMPRESSION: Progressive consolidation seen within the left lower lung zone concerning for a developing pneumonia. EKG EKG: sinus rhythm rate 68, PVC Impression Assessment and Plan PNEUMONIA CAP vs aspiration. Suspect aspiration with pt's hx choking with ALS. Pt afebrile. No leukocytosis. Vitals stable. CXR: Progressive consolidation seen within the left lower lung zone concerning for a developing pneumonia. Pt given Rocephin and Zithromax IV in ER. -blood cultures added -flu swab -MRSA swab -Mucomyst inhalation Q6 H, may consider po mucomyst -Unasyn for aspiration pneumonia coverage -duoneb -speech consult for swallowing eval -NPO until speech eval -cbc, prp in am -repeat CXR in am ALS -swallowing eval -continue riluzole -hold robinul currently as giving mucomyst Hx CAD/HTN no CP. No significant LE edema -continue ASA -continue atenolol -continue lasix DVT PROPHYLAXIS -heparin SQ DISPOSITION -admit tele -DNR as per discussion with pt -Follows with Dr Giraldo for routine care Pt was seen with Dr Keyes. 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 DR Ryder Keyes Level of Care Telemetry Advanced Directives Existing Advance Directive: Yes Existing Power of Outside Cutter Hand: Yes Resuscitation Status DO NOT RESUSCITATE VTE Prophylaxis VTE Risk Assessment Done? Y/N: Yes Risk Level: Moderate Given or contraindicated: Unfractionated heparin SQ Additional Copies To Armaan Giraldo M.D.
[2017-06-09 17:11] VITALS: BP 147/65; PULSE 68; TEMP 36.6; O2SAT 94; Ht 186.7 cm; Wt 104.9 kg
[2017-06-09 17:26] LABS: INFLUENZA B ANTIGEN Neg for Influ B (NEG)
[2017-06-09 18:00] LABS: INFLUENZA A PCR Neg for Influ A (NEG); INFLUENZA B PCR Neg for Influ B (NEG)
[2017-06-09] MEDS: MICONAZOLE NITRATE POWDER 43 GM EXT PRN (18:46)
[2017-06-09 19:39] VITALS: BP 150/77; PULSE 80; TEMP 36.5; O2SAT 93
[2017-06-09] MEDS: ACETYLCYSTEINE 20% INHAL SOLN ***DISPENSED BY RESP. INH SCH (19:42)
[2017-06-09] MEDS: ALBUT/IPRATROP 3MG/0.5MG NEB 3 ML VIAL INH SCH (19:43)
[2017-06-09 19:46] VITALS: PULSE 71; O2SAT 96
--- NOTE | 2017-06-09 20:00 | NUR ---
A: Pt resting comfortably in bed upon assessment. Lung sounds course and diminished on RA. Pt denies pain and SOB at this time. Pt NPO at this time awaiting speech eval. Pt turn and reposition q2 and prn. Desenex powder applied to groin folds. Call guardado within reach, and encouraged to ring for assistance. Bed alarm on for safety.
[2017-06-09 20:04] VITALS: O2SAT 96
[2017-06-09] MEDS: GABAPENTIN 300 MG CAP PO SCH (20:19)
[2017-06-09] MEDS: RILUZOLE 50 MG TAB PO SCH (20:19)
[2017-06-09] MEDS: HEPARIN SOD 5000 UNIT/0.5 ML CARP SQ SCH (21:45)
[2017-06-10] VITALS (14 sets, daily range): BP systolic 118–160; BP diastolic 62–80; PULSE 60–86; TEMP 36.3–36.9; O2SAT 93–98
--- NOTE | 2017-06-10 | NUR ---
A: Patient resting in bed. Alert and oriented x 4. Denies chest pain and shortness of breath. Only has pain when moving, especially right arm. Left forearm IV running NSS@ 75ml/hr. Skin intact, groin excoriated, Desenex powder applied. Otherwise skin intact. 2 assist for care, very weak due to ALS. Bed alarm on for safety. D/C plans uncertain at this time. Will continue to monitor.
[2017-06-10] MEDS: ALBUT/IPRATROP 3MG/0.5MG NEB 3 ML VIAL INH SCH ×4 (02:00→15:15)
[2017-06-10] MEDS: ACETYLCYSTEINE 20% INHAL SOLN ***DISPENSED BY RESP. INH SCH ×3 (03:26→15:14)
--- NOTE | 2017-06-10 04:00 | NUR ---
A: Patient sleeping. Assessment unchanged. Left forearm IV running NSS@ 75ml/hr. Will continue to monitor.
--- NOTE | 2017-06-10 04:15 | NUR ---
A: Patient transferred to room 275, all belongings packed and sent with patient. No further questions or needs at this time.
[2017-06-10] MEDS: AMPICILLIN/SULBACTAM SOD INJ 3,000 MG in SODIUM CHLORIDE 0.9% 100ML 100 ML IV SCH ×4 (04:18→22:01)
[2017-06-10 06:17] LABS: BASO % 0.9 %; BASO ABS # 0.04 K/uL (0-0.2); EOS % 4.1 %; EOS ABS # 0.19 K/uL (0-0.5); HEMATOCRIT 40.4 % (42-52); HEMOGLOBIN 14.3 g/dL (14.0-18.0); IG# 0.01 K/uL (0.00-0.02); LYMPH % 28.5 %; LYMPH ABS # 1.32 K/uL (1.2-3.4); MEAN CELL VOLUME 99.3 fL (80-100); MEAN CORPUSCULAR HEMOGLOBIN 35.1 pg (25-34); MEAN CORPUSCULAR HGB CONC 35.4 g/dl (32-36); MEAN PLATELET VOLUME 9.3 fL (7.4-10.4); MONO % 8.4 %; MONO ABS # 0.39 K/uL (0.11-0.59); NEUT % 57.9 %; NEUT ABS # 2.68 K/uL (1.4-6.5); PLATELET COUNT 149 K/uL (130-400); RED CELL DISTRIBUTION WIDTH CV 14.2 % (11.5-14.5); RED CELL DISTRIBUTION WIDTH SD 51.2 fL (36.4-46.3); WHITE BLOOD COUNT 4.63 K/uL (4.8-10.8)
[2017-06-10] MEDS: HEPARIN SOD 5000 UNIT/0.5 ML CARP SQ SCH ×3 (06:21→21:13)
[2017-06-10 06:50] LABS: CALCIUM 8.5 mg/dl (8.5-10.1); CREATININE 1.17 mg/dl (0.60-1.40); POTASSIUM 4.2 mmol/L (3.5-5.1)
--- NOTE | 2017-06-10 08:00 | NUR ---
A/ID Note:Patient and alert X 4, Speech Garbled, Right sided weakness d/t Hx: ALS noted. Denies pain/discomfort/Watts thus far, Vss. See EMR for full assessment. Afebrile, continues on Abx Iv therapy. threat monitoring analyst applied on, Normal Sinus Rhythm, Heart rate Mid 60's. Will continue to monitor and update MD as needed. Call guardado within reach.
[2017-06-10] MEDS: ASPIRIN 81 MG ECTAB PO SCH (10:26)
[2017-06-10] MEDS: GABAPENTIN 300 MG CAP PO SCH ×2 (10:27→21:09)
[2017-06-10] MEDS: RILUZOLE 50 MG TAB PO SCH ×2 (10:27→21:10)
[2017-06-10] MEDS: FUROSEMIDE 20 MG TAB PO SCH (10:27)
--- NOTE | 2017-06-10 12:00 | NUR ---
A/ID Note:Systems unchanged thus far, Vss. box spring frame builder applied on, NSR, Heart rate Low 80's noted. Will continue to monitor and update MD as needed. Call guardado and within reach
--- NOTE | 2017-06-10 12:23 | NUR ---
Discharge planning consult received. I spoke with patient at bedside, he is receiving a breathing treatment and asks that his provide information. Lesia states that she and the patient live in their own home. He has a history of ALS that has progressively gotten worse over the last 6 months. Patient currently has a walker, stair lift and hospital bed, no home oxygen. He is receiving MOW. assists with needs however it has become more difficult for her. She was given information on home health services while in the ED as well as phone number for [facility] for waiver and transportation services. They don't want to consider placement at this time. Plan is to return home at discharge. Patient would benefit from pt/ot evals. Case management to follow.
[2017-06-10] MEDS: MICONAZOLE NITRATE POWDER 43 GM EXT PRN (13:22)
[2017-06-10] MEDS ORDERED: BISACODYL 5 MG TABEC ONE (14:27)
[2017-06-10] MEDS: BISACODYL 5 MG TABEC PO SCH ×2 (14:28→14:30)
--- NOTE | 2017-06-10 15:35 | DIAGNOSTIC IMAGING REPORT ---
CHEST ONE VIEW PORTABLE CLINICAL HISTORY: pneumonia dyspnea COMPARISON STUDY: 06/09/2017 FINDINGS: Diffuse infiltrate left mid to lower lung perhaps slightly improved from the prior study. Right lung remains grossly clear. Slight chronic prominence of the parenchymal markings of the right hemithorax. Moderate stable cardiomegaly. IMPRESSION: Slight improvement in parenchymal infiltrative process left mid to lower lung. Otherwise unchanged exam. The above report was generated using voice recognition software. It may contain grammatical, syntax or spelling errors. Electronically signed by: Carroll Burleson M.D. 06/10/2017 3:34 PM Dictated Date/Time: 06/10/2017 3:33 PM
--- NOTE | 2017-06-10 16:00 | NUR ---
A: The patient is alert and oriented x4, denies pain, nausea and shortness of breath. Speech is garbled, which per who is at the bedside is baseline r/t his ALS. The patient's right arm and leg are also notably weaker than the left, which is also baseline. The patient's vital signs are stable on room air, and the patient is in normal sinus rhythm with occasional PVCs on the monitoring analyst. The patient's left upper arm peripheral IV site is intact and asymptomatic. See full assessment. Call guardado is within reach.
--- NOTE | 2017-06-10 17:55 | Progress Note ---
Internal Med Progress Note Date of Service: Jun 10, 2017. Provider Documentation: SUBJECTIVE: continues to have cough , difficult to clear secretions has persisted post nasal drip , feels sputum blocked up on back on the throat evaluated by Speech pathology -diet advanced to mechanical soft diet with aspiration precaution had chocking episode with dinner today pt is very difficult to understand due to marked dysarthria -interprets -pt denies of choking on food , says he was hurrying to swallow , and started to cough comfortable with current diet will ask speech to evaluation pt again tomorrow OBJECTIVE: Vital Signs-as noted below Exam: General Appearance: no apparent distress Head: normocephalic, atraumatic Eyes: normal inspection, PERRL, EOMI, sclerae normal ENT: hearing grossly normal, pharynx normal Neck: supple, no JVD, trachea midline Respiratory/Chest: + decreased breath sounds, + crackles Cardiovascular: regular rate, rhythm, n Abdomen/GI: normal bowel sounds, non tender, soft Extremities/Musculoskelatal: normal capillary refill, non-tender, . Neurologic/Psych: alert, normal mood/affect, oriented x 3, + +dysarthria)right foot drop. Right arm and R leg weakness compared to left arm and leg Lab data as noted below. ASSESSMENT & PLAN: LEFT SIDED PNEUMONIA Suspect aspiration with pt's hx choking with ALS. Pt afebrile. No leukocytosis. Vitals stable. CXR: Progressive consolidation seen within the left lower lung zone concerning for a developing pneumonia. 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 pt was Evaluated by ENT Dr Brantley , no sinus congestion was noted , Glycopyrrolate was ordered to thin out secretion As per Pt used it for 2 day thinks made his congestion worse pt has stopped taking it since ordered for Flonase nasal spray to improve posterior nasal drip added Mucinex offered to use Scopolamine patch to reduce secretion , is concern about the side effect of dry mouth ,as pt already complains of having dry sore mouth Added Protonix to prevent GERD which may also contribute to the symptom ALS( MOTOR NEURON DISEASE ) -with significant functional decline bedbound , able to transfer with assistance symptom progressively worsening in past 6 months with severe Dysarthria /dysphagia speech therapy following very poor prognosis Hx CAD/HTN stable , no complain of chest pain or discomfort -continue ASA on atenolol -BP stable with beta isabell and Lasix DVT PROPHYLAXIS high risk for limited mobility/advanced ALS -heparin SQ CODE STATUS -DNR DISPOSITION lives at home with expected to return to home when medically stable pt/ot eval requested will benefit with home health visiting nurse medicine follow up with Dr Giraldo Vital Signs: Date Time Temp Pulse Resp B/P (MAP) Pulse Ox O2 Delivery O2 Flow Rate FiO2 06/11/17 08:00 95 Room Air 06/11/17 07:16 37.2 69 18 146/76 (99) 95 Room Air 06/11/17 05:27 36.5 84 20 133/74 (93) 94 Room Air 06/11/17 04:00 Room Air 06/11/17 00:00 Room Air 06/10/17 23:54 36.4 82 18 150/80 (103) 94 Room Air 06/10/17 20:00 Room Air 06/10/17 19:30 86 16 96 Room Air 06/10/17 19:27 36.4 74 18 160/67 (98) 94 Room Air 06/10/17 16:00 Room Air 06/10/17 15:16 36.4 77 18 136/74 (94) 96 Room Air 06/10/17 15:15 81 16 95 Room Air 06/10/17 12:00 95 Room Air 06/10/17 11:41 36.3 81 20 154/76 (102) 96 Room Air Lab Results:
[2017-06-10] MEDS ORDERED: GUAIFENESIN/CODEINE 100MG/10MG 5ML UDC PO PRN (18:15)
[2017-06-10] MEDS: FLUTICASONE PROPIONATE NA SPR 16 GM BTL SCH ×2 (18:34→21:06)
[2017-06-10] MEDS ORDERED: ALBUT/IPRATROP 3MG/0.5MG NEB 3 ML VIAL INH PRN (20:00)
--- NOTE | 2017-06-10 20:00 | NUR ---
A: The patient is alert and oriented x4, resting in bed at this time. The patient continues to deny pain, nausea and shortness of breath. Vital signs remain stable on room air, and the patient is in normal sinus rhythm with occasional PVCs on the diagnostic cardiac sonographer. During dinner this nurse noted the patient having a short, self-resolved episode of choking. The was at the bedside, who states that this happens at home. However, Dr. Laureano paged and pt made NPO. Dr. Laureano came to assess the patient and stated that he may have food and drink per speech recommendations, but that she will make speech aware and possibly order a video swallow. The patient has had no residual coughing, fever or shortness of breath. Assessment remains unchanged. Call guardado is within reach.
[2017-06-10] MEDS: RANITIDINE HCL SYRUP 150 MG/10 ML UDC PO SCH (21:08)
[2017-06-10] MEDS: GUAIFENESIN 600 MG TABCR PO SCH (21:09)
[2017-06-10] MEDS: PANTOprazole SOD 40 MG TAB PO SCH (21:10)
[2017-06-11] VITALS (9 sets, daily range): BP systolic 107–146; BP diastolic 64–88; PULSE 66–87; TEMP 36.4–37.2; O2SAT 92–100
--- NOTE | 2017-06-11 | NUR ---
A: Received care of pt. at 22:45. Pt. A+Ox4. Garbled speech and right-sided weakness chronic for patient. VSS on room air. NSR on tube carrier. For full assessment, see EMR. Pt. transferred to [facility] with max 2-assist, had small BM. Voiding clear, yellow in urinal independently. Pt. currently resting in bed, bed exit alarm on and call guardado within reach. Will continue to monitor.
[2017-06-11] MEDS: AMPICILLIN/SULBACTAM SOD INJ 3,000 MG in SODIUM CHLORIDE 0.9% 100ML 100 ML IV SCH (03:50)
--- NOTE | 2017-06-11 04:00 | NUR ---
A: Assessment unchanged, see EMR. NSR with occasional PVCs noted on network engineer. Pt. continent, voiding in urinal. Pt. resting in bed, bed exit alarm on and call guardado within reach.
[2017-06-11] MEDS: HEPARIN SOD 5000 UNIT/0.5 ML CARP SQ SCH ×3 (06:01→21:21)
--- NOTE | 2017-06-11 08:00 | NUR ---
A: Pt is alert and oriented x 4. Pt wants to wait to take meds until comes. Pt denies any pain. Pt is Sinus rhythm on monitor. Pt has occasional PVC's. Pt set up for breakfast. Pt fed self and tolerated well.
[2017-06-11] MEDS: ASPIRIN 81 MG ECTAB PO SCH (08:38)
[2017-06-11] MEDS: GABAPENTIN 300 MG CAP PO SCH ×2 (08:38→21:16)
[2017-06-11] MEDS: FUROSEMIDE 20 MG TAB PO SCH (08:38)
[2017-06-11] MEDS: PANTOprazole SOD 40 MG TAB PO SCH ×2 (08:39→21:16)
[2017-06-11] MEDS: BISACODYL 5 MG TABEC PO SCH (08:39)
[2017-06-11] MEDS: FLUTICASONE PROPIONATE NA SPR 16 GM BTL SCH ×2 (08:39→21:21)
[2017-06-11] MEDS: GUAIFENESIN 600 MG TABCR PO SCH (08:40)
[2017-06-11] MEDS: RANITIDINE HCL SYRUP 150 MG/10 ML UDC PO SCH ×2 (08:40→21:16)
[2017-06-11] MEDS: RILUZOLE 50 MG TAB PO SCH ×2 (08:41→21:16)
[2017-06-11] MEDS ORDERED: BISACODYL 10 MG SUPP PR PRN (11:45)
--- NOTE | 2017-06-11 12:00 | NUR ---
A/ID note: Pt is alert and oriented x 4. Pt has very garbled speech and gets frustrated when nurse has trouble understanding. Emotional support given. Pt did not have any choking episodes today. Took smaller pills whole pudding was encouraged. Pt 2 assist OOB to chair for most of shift. Pt has been continent and had a small BM. Dulcolox Supp. given. at bedside. Pt to be be discharged to home with supportive services.
--- NOTE | 2017-06-11 13:24 | NUR ---
Discharge planning. Plan remains for patient to return home with family support and community services. Patient is in the process of looking into waiver services. Pt/ot ordered, await recommendations. Case management to follow.
--- NOTE | 2017-06-11 21:17 | Progress Note ---
Internal Med Progress Note Date of Service: Jun 11, 2017. Provider Documentation: SUBJECTIVE: feels much better , no evidence of chocking with meals cough has improved no fever or chills OBJECTIVE: Vital Signs-as noted below Exam: General Appearance: no apparent distress Head: normocephalic, atraumatic Eyes: normal inspection, PERRL, EOMI, sclerae normal ENT: hearing grossly normal, pharynx normal Neck: supple, no JVD, trachea midline Respiratory/Chest: + decreased breath sounds, + crackles Cardiovascular: regular rate, rhythm, n Abdomen/GI: normal bowel sounds, non tender, soft Extremities/Musculoskelatal: normal capillary refill, non-tender, . Neurologic/Psych: alert, normal mood/affect, oriented x 3, + +dysarthria)right foot drop. Right arm and R leg weakness compared to left arm and leg Lab data as noted below. ASSESSMENT & PLAN: LEFT SIDED PNEUMONIA Suspect aspiration with pt's hx choking with ALS. Pt afebrile. No leukocytosis. Vitals stable. CXR:Progressive consolidation seen within the left lower lung zone concerning for a developing pneumonia. -was on IV Unasyn for aspiration pneumonia coverage changed to PO Augmentin complete 7 days course -speech eval requested prior VFSS shows silent aspiration to liquid , mild to moderate oropharyngeal dysphagia appreciate input form Speech pt has progressive motor Neuron disease with worsening dysphagia very poor prognosis recommends; .Mechanical Soft slippery diet with thin lqiudis no straws 2.Aspiration Precautions: SINGLE SWALLOWS of liquids using effortful swallow; swallow twice using effortful swallow after swallowing solids; complete oral hygiene at least 3x/day to minimize oral bacteria that may be aspirated in saliva/secretions; keep head of bed elevated AT LEAST 30-degrees at all times; remain upright after eating for 15-20 minutes after meals 3.Meds in carrier (pudding or applesauce) although prior VFSS showed silent aspiration with thin liquids Thickening diet not ordered as pt already having difficulties with thick mucus secretions VERY POOR PROGNOSIS if pt develops worsening of dysphagia -next step would be Feeding tube -pt and declines that option pt mentions of having trouble with thick secretion on back of the throat , 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 pt was Evaluated by ENT Dr Brantley , no sinus congestion was noted , Glycopyrrolate was ordered to thin out secretion As per Pt used it for 2 day thinks made his congestion worse pt has stopped taking it since ordered for Flonase nasal spray to improve posterior nasal drip symptom has mildly improved script for Flonase sent to pharmacy offered to use Scopolamine patch to reduce secretion , is concern about the side effect of dry mouth ,as pt already complains of having dry sore mouth Added Protonix to prevent GERD which may also contribute to the symptom ALS( MOTOR NEURON DISEASE ) -with significant functional decline symptom progressively worsening in past 6 months appreciate PT /OT eval recommend Front wheel walker -script given very poor prognosis Hx CAD/HTN stable , no complain of chest pain or discomfort -continue ASA on atenolol -BP stable with beta isabell and Lasix DVT PROPHYLAXIS high risk for limited mobility/advanced ALS -heparin SQ CODE STATUS -DNR DISPOSITION lives at home with plan to discharge home with home health visiting nurse medicine follow up with Dr Giraldo Vital Signs: Date Time Temp Pulse Resp B/P (MAP) Pulse Ox O2 Delivery O2 Flow Rate FiO2 06/11/17 19:30 36.6 80 18 115/64 (81) 95 Room Air 06/11/17 16:00 Room Air 06/11/17 15:28 36.5 66 19 131/85 (100) 96 Room Air 06/11/17 12:00 96 Room Air 06/11/17 11:24 36.6 82 18 121/78 (92) 96 Room Air 06/11/17 08:00 95 Room Air 06/11/17 07:16 37.2 69 18 146/76 (99) 95 Room Air 06/11/17 05:27 36.5 84 20 133/74 (93) 94 Room Air 06/11/17 04:00 Room Air 06/11/17 00:00 Room Air 06/10/17 23:54 36.4 82 18 150/80 (103) 94 Room Air
[2017-06-11] MEDS ORDERED: FLNIN (21:45)
[2017-06-11] MEDS ORDERED: ZNTL PO (21:45)
[2017-06-11] MEDS ORDERED: AMOX1TAB43 PO (21:45)
[2017-06-11] MEDS ORDERED: OMEP20TA PO (21:45)
--- NOTE | 2017-06-11 21:47 | Discharge Instructions ---
Discharge Instructions Date of Service Jun 11, 2017. Admission Reason for Admission: Pneumonia Discharge Discharge Diagnosis / Problem: DYSPHAGIA /ASPIRATION PENUMONIA /INCREASED SECRETION Discharge Goals Goal(s): Increase independence, Improve disease control, Diagnostic testing, Therapeutic intervention Activity Recommendations Activity Limitations: resume your previous activity . Instructions / Follow-Up Instructions / Follow-Up HOSPITAL FOLLOW UP: 06/16/2017 9:40 AM Vinny Urbina MD Internal Medicine [facility] DIET RECOMMENDATION : 1.Mechanical Soft slippery diet with thin lqiudis no straws 2.Aspiration Precautions: SINGLE SWALLOWS of liquids using effortful swallow; swallow twice using effortful swallow after swallowing solids; complete oral hygiene at least 3x/day to minimize oral bacteria that may be aspirated in saliva/secretions; keep head of bed elevated AT LEAST 30-degrees at all times; remain upright after eating for 15-20 minutes after meals 3.Meds in carrier (pudding or applesauce) Current Hospital Diet Patient's current hospital diet: AHA Diet (Heart Healthy) Discharge Diet Recommended Diet: Regular Diet Diet Texture: Mechanical Soft (ground) Pending Studies Studies pending at discharge: no Medical Emergencies . Who to Call and When: Medical Emergencies: If at any time you feel your situation is an emergency, please call 911 immediately. . Non-Emergent Contact Non-Emergency issues call your: Primary Care Provider . . "Provider Documentation" section prepared by Kristy Laureano. . VTE Core Measure Inpt VTE Proph given/why not?: Unfractionated heparin SQ
[2017-06-11] MEDS: AMOXICILLIN/CLAVULANATE TAB 875 MG TAB PO SCH (22:19)
[2017-06-12 04:18] VITALS: BP 121/70; PULSE 68; TEMP 36.5; O2SAT 93
[2017-06-12] MEDS: HEPARIN SOD 5000 UNIT/0.5 ML CARP SQ SCH (06:00)
[2017-06-12 07:11] VITALS: BP 138/58; PULSE 74; TEMP 36.8; O2SAT 95
[2017-06-12 08:09] VITALS: BP 138/75; PULSE 87
[2017-06-12] MEDS: PANTOprazole SOD 40 MG TAB PO SCH (08:10)
[2017-06-12] MEDS: BISACODYL 5 MG TABEC PO SCH (08:10)
[2017-06-12] MEDS: AMOXICILLIN/CLAVULANATE TAB 875 MG TAB PO SCH (08:10)
[2017-06-12] MEDS: GABAPENTIN 300 MG CAP PO SCH (08:11)
[2017-06-12] MEDS: ASPIRIN 81 MG ECTAB PO SCH (08:11)
[2017-06-12] MEDS: RANITIDINE HCL SYRUP 150 MG/10 ML UDC PO SCH (08:12)
[2017-06-12] MEDS: RILUZOLE 50 MG TAB PO SCH (08:12)
[2017-06-12] MEDS: FLUTICASONE PROPIONATE NA SPR 16 GM BTL SCH (08:12)
[2017-06-12] MEDS: FUROSEMIDE 20 MG TAB PO SCH (08:12)
[2017-06-12] MEDS ORDERED: AGMUDL4005 PO (09:57)
[2017-06-12] MEDS ORDERED: FLNIN (09:57)
[2017-06-12] MEDS ORDERED: OMEP20TA PO (09:57)
[2017-06-12] MEDS ORDERED: ZNTL PO (09:57)
[2017-06-12 10:21] VITALS: BP 138/75; PULSE 87; TEMP 36.8; O2SAT 95
--- NOTE | 2017-06-12 10:34 | NUR ---
Case Management: Informed that this pt was being discharged today. Noted that Dr Keys as the disposition "home with home health services". Met with pt and in the room. Lesia is pt's caregiver. Pt spoke with but his speech is difficult to understand. Per he was not really interested in the home health but she is. Pt had received home health in the past - [facility]. [facility] [facility] Ref[place] will be placed today. departmental secretary also gave me a script for a walker and would like to get that thru [facility]. I will fax script and necessary information and will grape picker after the holiday. Pt currently using a standard walker. Addendum: 06/12/17 at 1054 by Roz Gonzalez SERV [facility] [place] [facility]
--- NOTE | 2017-06-12 10:45 | NUR ---
A: All discharge instructions given to patient and . SL removed by IV team. All questions answered regarding discharge. Scripts for walker given to patient by outsole caser. Volunteer escorted patient via wheelchair to exit with .
--- NOTE | 2017-06-12 19:14 | Progress Note ---
Internal Med Progress Note Date of Service: Jun 12, 2017. Provider Documentation: SUBJECTIVE: resting comfortably denies sob eating ok hemodynamics stable wants to be discharged in room to take him home OBJECTIVE: Vital Signs-as noted below Exam: General-alert and awake. Not in distress ENT-Normal hearing Neck-no neck masses supple Lungs-cta b/l no wheezing no crackles Heart-S1 and S2 heard regular rate and rthym, no murmurs Abdomen-Soft bowel sounds present non tender no distension Extremities-no edema no erythema Neuro-alert and awake moves extremities Lab data as noted below. ASSESSMENT & PLAN: LEFT SIDED PNEUMONIA Suspect aspiration with pt's hx choking with ALS. CXR:Progressive consolidation seen within the left lower lung zone concerning for a developing pneumonia. was on IV Unasyn for aspiration pneumonia coverage changed to PO Augmentin to complete 7 days course speech eval requested recommends; .Mechanical Soft slippery diet with thin lqiudis no straws 2.Aspiration Precautions: SINGLE SWALLOWS of liquids using effortful swallow; swallow twice using effortful swallow after swallowing solids; complete oral hygiene at least 3x/day to minimize oral bacteria that may be aspirated in saliva/secretions; keep head of bed elevated AT LEAST 30-degrees at all times; remain upright after eating for 15-20 minutes after meals 3.Meds in carrier (pudding or applesauce) although prior VFSS showed silent aspiration with thin liquids Thickening diet not ordered as pt already having difficulties with thick mucus secretions VERY POOR PROGNOSIS A per :if pt develops worsening of dysphagia -next step would be Feeding tube -pt and declines that option As per : pt mentions of having trouble with thick secretion on back of the throat , 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 pt was Evaluated by ENT Dr Brantley , no sinus congestion was noted , Glycopyrrolate was ordered to thin out secretion As per Pt used it for 2 day thinks made his congestion worse pt has stopped taking it since ordered for Flonase nasal spray to improve posterior nasal drip symptom has mildly improved script for Flonase sent to pharmacy offered to use Scopolamine patch to reduce secretion , is concern about the side effect of dry mouth ,as pt already complains of having dry sore mouth Added Protonix to prevent GERD which may also contribute to the symptom ALS( MOTOR NEURON DISEASE ) with significant functional decline symptom progressively worsening in past 6 months appreciate PT /OT eval recommend Front wheel walker -script given very poor prognosis Hx CAD/HTN stable ,on ASA on atenolol DVT PROPHYLAXIS discharged home Vital Signs: Date Time Temp Pulse Resp B/P (MAP) Pulse Ox O2 Delivery O2 Flow Rate FiO2 06/12/17 10:21 36.8 87 18 95 Room Air 06/12/17 08:09 87 138/75 (96) 06/12/17 08:00 Room Air 06/12/17 07:11 36.8 74 18 138/58 (84) 95 Room Air 06/12/17 04:18 36.5 68 18 121/70 (87) 93 Room Air 06/12/17 00:00 Room Air 06/11/17 22:55 36.4 84 18 135/88 (104) 92 Room Air 06/11/17 19:30 36.6 80 18 115/64 (81) 95 Room Air
--- NOTE | 2017-06-12 19:27 | Discharge Summary ---
Discharge Summary Date of Service Jun 12, 2017. Discharge Summary Admission Date: Jun 09, 2017 at 13:58 Discharge Date: Jun 12, 2017 Discharge Disposition: Home with services Principal Diagnosis: PNEUMONIA ASPIRATION Secondary Diagnoses/Problems: (1) ALS (amyotrophic lateral sclerosis) Status: Chronic (2) CKD (chronic kidney disease), stage III Status: Chronic (3) Esophageal perforation Status: Resolved (4) Foreign body in trachea Status: Resolved (5) Foreign body sensation in throat Status: Resolved (6) Heart disease Permanent Comment: hx CAD stent to RCA 2000 Status: Chronic (7) HTN (hypertension) Status: Chronic (8) Lung cancer Status: Resolved (9) Lung cancer Permanent Comment: 2011 - squamous cell SUNDAY Status: Chronic Procedures: CXR: Progressive consolidation seen within the left lower lung zone concerning for a developing pneumonia. Medication Reconciliation New Medications: Amoxicillin/Clavulanate Potas (Augmentin 400MG/5ML) 400 Mg/5 Ml Susp 10 ML PO BID for 5 Days, #100 ML Omeprazole (Omeprazole) 20 Mg Tab 1 TAB PO DAILY for 30 Days, #30 TAB 3 Refills Fluticasone Propionate (Fluticasone Propionate) 50 Mcg/Act Spr 2 SPRAYS NA BID for 30 Days, #1 SPRAY 3 Refills Ranitidine HCl (Ranitidine HCl) 150 Mg/10 Ml Syrp 150 MG PO BID for 30 Days, #60 TABS 3 Refills Continued Medications: Aspirin (Aspirin Ec) 81 Mg Tab 81 MG PO DAILY Atenolol (Tenormin) 25 Mg Tab 25 MG PO DAILY Docusate Sodium (Colace) 100 Mg Cap 1 CAP PO DAILY PRN for Constipation Furosemide (Furosemide) 20 Mg Tab 1 TAB PO DAILY Gabapentin (Neurontin) 300 Mg Cap 300 MG PO BID Glycopyrrolate (Glycopyrrolate) 1 Mg Tab 1 TAB PO TID Meloxicam (Mobic) 15 Mg Tab 15 MG PO DIRECTED PRN for Pain, TAB Riluzole (Riluzole) 50 Mg Tab 1 TAB PO BID Tramadol HCl (Tramadol HCl) 50 Mg Tab 1 TAB PO Q6 PRN for Pain Discontinued Medications: Azelastine HCl (Azelastine Hydrochloride) 0.1 % Spr 2 SPRAYS MAHIN BID Admission Information HPI (per Admitting provider): Pt is 76 y/o M with PMH HTN, hyperlipidemia, CAD with stent to RCA 2000, 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 Pt and reports ALS progressing and has been having increased trouble swallowing mucous and choking frequently on mucous. Denies increased mucous production. Sometimes chokes on pills. states pt usually ok with eating but does sometimes cough with that. Reports 2 days ago bad choking and coughing episodes and yesterday also. Yesterday feeling SOB. Does home PT exercises for R sided weakness and has brace for R foot drop. does pt's ADL's. Denies fever/chills, diaphoresis, N/V/D, PERRY, dizziness, syncope, vision changes, neck pain, CP, orthopnea, palpitations, hemoptysis, rhinorrhea, abdominal pain, extremity edema , rashes, urinary symptoms. Pt follows with Dr Youngblood neurology, in past followed with Dr Greenberg for oncology and has appt with pulmonology - Dr Merchant in [place] for PFTs and f/ u. Dr Cole - cue worker. Dr Brantley ENT In ER pt afebrile, O2: 96% on RA. no leukocytosis, negative troponin. CXR: LLL consolidation. Pt given rocephin and zithromax IV in ER. Physical Exam (per Admitting): General Appearance: WD/WN, no apparent distress, + pertinent finding (+ dysarthria) Head: normocephalic, atraumatic Eyes: normal inspection, PERRL, EOMI, sclerae normal ENT: hearing grossly normal, pharynx normal Neck: supple, no JVD, trachea midline Respiratory/Chest: chest non-tender, no respiratory distress, no accessory muscle use, + decreased breath sounds, + crackles Cardiovascular: regular rate, rhythm, normal peripheral pulses Abdomen/GI: normal bowel sounds, non tender, soft Extremities/Musculoskelatal: normal capillary refill, non-tender, + pedal edema (mild bilaterally. right foot drop. Right arm and R leg weakness compared to left arm and leg) Neurologic/Psych: alert, normal mood/affect, oriented x 3, + pertinent finding (+dysarthria) Skin: normal color, warm/dry Hospital Course LEFT SIDED PNEUMONIA Suspect aspiration with pt's hx choking with ALS. CXR:Progressive consolidation seen within the left lower lung zone concerning for a developing pneumonia. was on IV Unasyn for aspiration pneumonia coverage changed to PO Augmentin to complete 7 days course speech eval requested recommends; .Mechanical Soft slippery diet with thin lqiudis no straws 2.Aspiration Precautions: SINGLE SWALLOWS of liquids using effortful swallow; swallow twice using effortful swallow after swallowing solids; complete oral hygiene at least 3x/day to minimize oral bacteria that may be aspirated in saliva/secretions; keep head of bed elevated AT LEAST 30-degrees at all times; remain upright after eating for 15-20 minutes after meals 3.Meds in carrier (pudding or applesauce) although prior VFSS showed silent aspiration with thin liquids Thickening diet not ordered as pt already having difficulties with thick mucus secretions VERY POOR PROGNOSIS A per :if pt develops worsening of dysphagia -next step would be Feeding tube -pt and declines that option As per : pt mentions of having trouble with thick secretion on back of the throat , post nasal drip for senior care causing him to having chocking sensation pt was Evaluated by ENT Dr Brantley , no sinus congestion was noted , Glycopyrrolate was ordered to thin out secretion As per Pt used it for 2 day thinks made his congestion worse pt has stopped taking it since ordered for Flonase nasal spray to improve posterior nasal drip symptom has mildly improved script for Flonase sent to pharmacy offered to use Scopolamine patch to reduce secretion , is concern about the side effect of dry mouth ,as pt already complains of having dry sore mouth Added Protonix to prevent GERD which may also contribute to the symptom ALS( MOTOR NEURON DISEASE ) with significant functional decline symptom progressively worsening in past 6 months appreciate PT /OT eval recommend Front wheel walker -script given very poor prognosis Hx CAD/HTN stable ,on ASA on atenolol DVT PROPHYLAXIS discharged home Total time spent on discharge = 35MINUTES This includes examination of the patient, discharge planning, medication reconciliation, and communication with other providers. Discharge Instructions Discharge Instructions Date of Service Jun 11, 2017. Admission Reason for Admission: Pneumonia Discharge Discharge Diagnosis / Problem: DYSPHAGIA /ASPIRATION PENUMONIA /INCREASED SECRETION Discharge Goals Goal(s): Increase independence, Improve disease control, Diagnostic testing, Therapeutic intervention Activity Recommendations Activity Limitations: resume your previous activity . Instructions / Follow-Up Instructions / Follow-Up HOSPITAL FOLLOW UP: 06/16/2017 9:40 AM Vinny Urbina MD Internal Medicine [facility] DIET RECOMMENDATION : 1.Mechanical Soft slippery diet with thin lqiudis no straws 2.Aspiration Precautions: SINGLE SWALLOWS of liquids using effortful swallow; swallow twice using effortful swallow after swallowing solids; complete oral hygiene at least 3x/day to minimize oral bacteria that may be aspirated in saliva/secretions; keep head of bed elevated AT LEAST 30-degrees at all times; remain upright after eating for 15-20 minutes after meals 3.Meds in carrier (pudding or applesauce) Current Hospital Diet Patient's current hospital diet: AHA Diet (Heart Healthy) Discharge Diet Recommended Diet: Regular Diet Diet Texture: Mechanical Soft (ground) Pending Studies Studies pending at discharge: no Medical Emergencies . Who to Call and When: Medical Emergencies: If at any time you feel your situation is an emergency, please call 911 immediately. . Non-Emergent Contact Non-Emergency issues call your: Primary Care Provider . . "Provider Documentation" section prepared by Kristy Laureano. . VTE Core Measure Inpt VTE Proph given/why not?: Unfractionated heparin SQ
== END 2017-06-12 11:00 | disposition home health service (06) | DRG 178 ==
LOC: C.EDB 11:02 → C.MED 13:58 → ENRESERV 14:08 → C.MED 06-10 04:11
PROVIDERS: ADMIT Internal Medicine; ATTEND Internal Medicine
DX: J69.0 Pneumonitis due to inhalation of food and vomit (principal); G12.21 Amyotrophic lateral sclerosis; N18.3 Chronic kidney disease, stage 3 (moderate); I13.10 Hypertensive heart and chronic kidney disease without heart failure, with stage 1 through stage 4 chronic kidney disease, or unspecified chronic kidney disease; I25.10 Atherosclerotic heart disease of native coronary artery without angina pectoris; Z51.81 Encounter for therapeutic drug level monitoring; Z79.899 Other long term (current) drug therapy; Z79.82 Long term (current) use of aspirin; Z66 Do not resuscitate; Z95.5 Presence of coronary angioplasty implant and graft; Z85.118 Personal history of other malignant neoplasm of bronchus and lung; Z87.891 Personal history of nicotine dependence; Z82.3 Family history of stroke